=== PATIENT | male | born 1975 | race Caucasian/White ===

== ENCOUNTER 2016-10-08 09:23 | Emergency (ER) | payer BC, OTHER ==
[2016-10-08 09:43] VITALS: BP 120/73
[2016-10-08] MEDS ORDERED: Sodium Chloride 0.9% 1,000 ML IV ONE (10:08)
[2016-10-08] MEDS ORDERED: Ondansetron 4 MG/2 ML SDV IV ONE (10:09)
[2016-10-08 10:48] LABS: CHLORIDE,CL 105 mmol/L (101-111); SODIUM,NA 137 mmol/L (135-145)
[2016-10-08] MEDS ORDERED: traMADol 50 MG Tab PO ONE (10:55)
--- NOTE | 2016-10-08 12:27 | ER ---
SUBJECTIVE: The patient is a 41-year-old male. He comes in with some nonspecific back pain. No bone pain, more of bilateral back pain, lower back area, somewhat in the flank. He does not recall any specific injury or strain. No fevers. No recent illness. No chest pain, shortness of breath. No abdominal pain. No dysuria or hematuria. No bowel changes, melena, BRBPR, constipation, or diarrhea. He is active. He works out multiple times a week. He has no problems doing this. He is going skiing this next week. He comes in, because he has a remote history of having some type of viral infection that landed him in the hospital for a week and he ended up with some kidney disease, which has since long ago resolved, but he was told that he will be aware of it. Because he is going on this trip and he has a nonspecific back pain, he just wants to be sure it is not his kidneys. He really is otherwise asymptomatic. No headache, syncope, ENT issues, neck pain. He does have a mild cold and congestion, but no sinus pressure, or ear pain, or throat pain, or neck pain. PAST MEDICAL HISTORY: The patient has normally been very healthy. He is active, works out, he does wear glasses, has impaired vision. He had nasal surgery. He had a hernia pair. He was hospitalized with a kidney problem as referenced above in the HPI because he had a viral illness. MEDICATIONS: Current medications include Wellbutrin 200 mg p.o. daily. ALLERGIES: He is allergic to cefixime and Dilantin. REVIEW OF SYSTEMS: No fevers, chills, nausea, vomiting, abdominal pain, chest pain, shortness of breath, neck pain, ENT issues except for mild congestion. No leg pain. He does have a nonspecific back pain. He denies any trauma. Denies any bowel or bladder changes or bleeding or illness. OBJECTIVE: Vital Signs: Stable. He is afebrile. General: Very healthy appearing, ambulates well. He sits up and lays down well, shows no guarding. No signs of pain. He is nontoxic and in no distress. Very interactive. A and O x3. Good historian. Lungs: No respiratory distress. Neck: Full range of motion. Skin: Clear. Abdomen: Soft, benign. Back: No bony tenderness. No CVAT. He has mild nonspecific soft tissue bilateral back tenderness, however, it is normal to exam and it is all subjective for the most part. No signs of trauma. When he is sitting, I can raise each leg high without causing any back issues at all. LAB/STUDIES: Labs were done because of his history of previous kidney disease and issues. His white count was normal. He has no anemia. His BMP is also very unremarkable. He has normal BUN and creatinine. His urinalysis was also unremarkable, yellow clear, no signs of infection. Reviewed all of the patient's workup with him, reviewed that is all normal. He appears in very good health both by exam and by lab values. I did give him a tablet of tramadol for pain since he is not allowed to take NSAIDs. ASSESSMENT: Nonspecific low back pain-favor strain. Work up unremarkable. PLAN: Discharge to home in stable and improved condition, stay with family and monitor the condition. Return for emergent issues. Otherwise, follow up with PCP. Keep hydrated. See prescription for tramadol for severe pain. Otherwise, he can use Tylenol, icyHot, Bengay, massage, keep active range of motion, gentle stretching, and yoga. [facility] /[id number]
== END 2016-10-08 11:20 | disposition home or self-care (01) ==
LOC: DL.ED 09:23
DX: M54.5 Low back pain (principal); Z88.8 Allergy status to other drugs, medicaments and biological substances
CPT/HCPCS: 36415; 80048; 81001; 85025; 99283; A9270

== ENCOUNTER 2021-08-08 06:56 | Emergency (ER) | payer OTHER ==
[2021-08-08] MEDS ORDERED: methylPREDNISolone Sodium Succinate 40 MG/1 ML SDV IM ONE (07:22)
[2021-08-08] MEDS ORDERED: Orphenadrine 60 MG/2 ML Inj IM ONE (07:22)
[2021-08-08 09:27] VITALS: BP 121/90; PULSE 70
== END 2021-08-08 09:18 | disposition home or self-care (01) ==
LOC: DL.ED 06:56
DX: M47.12 Other spondylosis with myelopathy, cervical region (principal); Z88.1 Allergy status to other antibiotic agents; Z88.8 Allergy status to other drugs, medicaments and biological substances
CPT/HCPCS: 72040; 96372; 99283; 99285; J2360; J2920